=== PATIENT | female | born 1950 ===

== ENCOUNTER 2017-12-30 13:08 | Outpatient (CLI) | payer OTHER, MEDICARE ==
--- NOTE | 2017-12-30 15:27 | CT ---
CT ABDOMEN AND PELVIS WITH IV AND ORAL CONTRAST: HISTORY: Abdominal pain. Weight loss. FINDINGS: No comparison. Lung bases are clear. Calcified granulomata of the spleen are consistent with healed granulomatous disease. The liver, right kidney, adrenal glands, and pancreas are unremarkable. Sma ll left renal cyst. No enlarged lymph nodes or free fluid. Urinary bladder is incompletely distende d. No bowel abnormalities are evident. Prominent rightward convex rotatory scoliotic curvature of t he lumbar spine. Bilateral pars interarticularis defects at the lumbosacral junction. IMPRESSION: 1. Atherosclerosis. Chronic-type findings as detailed above. 2. No significant abnormalities are demonstrated to explain abdominal pain or weight loss. POS: [facility]
[2017-12-30] MEDS ORDERED: ISOVUE-370 76%-LOCM 1 ML ONE (16:41)
== END 2017-12-30 13:09 | disposition home or self-care (01) ==
LOC: BICCT 13:08
PROVIDERS: ATTEND Internal Medicine Gastroenterology
DX: R10.9 Unspecified abdominal pain (principal); R63.4 Abnormal weight loss; I70.90 Unspecified atherosclerosis
CPT/HCPCS: 74177

== ENCOUNTER 2018-04-12 09:10 | Outpatient (CLI) | payer MEDICARE, OTHER ==
--- NOTE | 2018-04-12 16:21 | NM ---
NUCLEAR MEDICINE [facility] BRAIN SCAN: Date: 04/12/18 HISTORY: 67-year-old female with G20 Parkinson's disease. TECHNIQUE: 130 mg of potassium iodide administered PO 1 hour prior to injection of radiopharmaceutical. 4.5 mCi of I-123 Ioflupane injected IV. 3 hours later, SPECT images of the brain obtained in axial plane. FINDINGS: There is symmetrical uptake in the bilateral caudate nuclei. There is abnormally very poor uptake in the bilateral putamina. IMPRESSION: Abnormal scan, positive for Parkinsonism. POS: [facility]
== END 2018-04-12 09:11 | disposition home or self-care (01) ==
LOC: NM 09:10
PROVIDERS: ATTEND Psychiatry & Neurology Neurology
DX: G20 Parkinson's disease (principal); R94.02 Abnormal brain scan
CPT/HCPCS: 78607; A9584